=== PATIENT | female | born 1980 | race Caucasian/White ===

== ENCOUNTER 2025-04-04 14:59 | Emergency (ER) | payer OTHER, SELFPAY ==
[2025-04-04 15:06] VITALS: BP 103/57; PULSE 61; RESP 60; TEMP 36.4; O2SAT 100; BMI 27.4
--- NOTE | 2025-04-04 15:12 | DI.RAD.S_ITS ---
PROCEDURE: XR FOOT LT MIN 3V INDICATIONS: foot pain TECHNIQUE: 3 views of the foot were acquired. COMPARISON: None. FINDINGS: Bones: No fractures or dislocations. No suspicious bony lesions. Soft tissues: No tibiotalar joint effusion. Achilles tendon appears normal. IMPRESSION: No acute left foot fracture or dislocation. Dictated by: Adolfo Zamora M.D. on 04/04/2025 at 15:02 Approved by: Adolfo Zamora M.D. on 04/04/2025 at 15:05
--- NOTE | 2025-04-04 18:29 | ED.LOWEXIN ---
HPI - Extremity Injury (Lower) <Supriya Xavier PA-C - Last Filed: 04/04/25 19:03> General Chief Complaint: Extremity Injury, Lower Stated Complaint: L Leg Pain Time Seen by Provider: 04/04/25 18:28 Source: patient Mode of arrival: Wheelchair History of Present Illness HPI Narrative: 45-year-old female here today for left foot pain that started earlier while she was at the grocery store. States prior to that she had no foot problems or pain at all and has no prior problems with the foot. States that she was walking to the grocery store she gradually started having pain through her whole midfoot and up her Achilles which got worse until she could not bear any weight on the foot. States her had to carry her upstairs to her house because she can not bear any weight on the foot. States this pain persisted for several hours but started to improve while she was in the waiting room. Currently her foot aches but she is not having the same pain as before and she is now able to bear weight on her foot. She denies any numbness or tingling. She denies any calf pain. She denies any headaches or dizziness. She denies pain in her back or hip or knee. She has not taken any medication for this. She does have known neuropathy in her feet for which she takes gabapentin. 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 States her neuropathy pain is not at all like the pain she experienced today. Related Data Allergies Allergy/AdvReac Type Severity Reaction Status Date / Time No Known Allergies Allergy Verified 04/04/25 15:07 Review of Systems <Supriya Xavier PA-C - Last Filed: 04/04/25 19:03> Review of Systems ROS Unobtainable: All systems reviewed & are unremarkable except as noted in HPI and below Patient History <Supriya Xavier PA-C - Last Filed: 04/04/25 19:03> Social History Smoking Status: Never smoker Smoking Status: Never smoker Exam <Supriya Xavier PA-C - Last Filed: 04/04/25 19:03> Narrative Exam Narrative: GENERAL: Well-developed, well-nourished, appears stated age. In no acute distress HEAD: Atraumatic. Normocephalic. EYES: Pupils equal round and reactive. Extraocular motions intact. No scleral icterus. No injection or drainage. ENT: Nose without bleeding, purulent drainage. Airway patent. NECK: Trachea midline. Non tender RESPIRATORY: Respiratory rate and effort normal EXTREMITIES: No edema or joint tenderness. Normal examination of the left foot. No swelling, no redness, no deformity. No tenderness to the entire foot. Normal range of motion. Normal neurovascular exam. No calf or Achilles tenderness. Able to bear full weight on the foot without difficulty. Normal gait. NEURO: AOx3. SKIN: No rash or erythema of visible areas Initial Vital Signs Initial Vital Signs: Vital Signs Temperature 97.6 F 04/04/25 15:06 Pulse Rate 61 04/04/25 15:06 Respiratory Rate 60 H 04/04/25 15:06 Blood Pressure 103/57 L 04/04/25 15:06 Pulse Oximetry 100 04/04/25 15:06 Oxygen Delivery Method Room Air 04/04/25 15:06 <Marcos Barbosa MD - Last Filed: 04/16/25 21:02> Initial Vital Signs Initial Vital Signs: Vital Signs Temperature 97.6 F 04/04/25 15:06 Pulse Rate 61 04/04/25 15:06 Respiratory Rate 60 H 04/04/25 15:06 Blood Pressure 103/57 L 04/04/25 15:06 Pulse Oximetry 100 04/04/25 15:06 Oxygen Delivery Method Room Air 04/04/25 15:06 Course <Supriya Xavier PA-C - Last Filed: 04/04/25 19:03> Orders Ordered: ED Orders 04/04/25 15:12 XR foot LT min 3V Stat Vital Signs Vital signs: Vital Signs - 8 hr 04/04/25 15:06 Temperature 97.6 F Pulse Rate 61 Respiratory Rate 60 H Blood Pressure 103/57 L Pulse Oximetry 100 Oxygen Delivery Method Room Air <Marcos Barbosa MD - Last Filed: 04/16/25 21:02> Orders Ordered: ED Orders 04/04/25 15:12 XR foot LT min 3V Stat Vital Signs Vital signs: Vital Signs - 8 hr 04/04/25 15:06 Temperature 97.6 F Pulse Rate 61 Respiratory Rate 60 H Blood Pressure 103/57 L Pulse Oximetry 100 Oxygen Delivery Method Room Air MDM - Extremity Injury (Lower) <Supriya Xavier PA-C - Last Filed: 04/04/25 19:03> Imaging Data Extremity x-ray #1: Radiologist's Impression: [address] [address] XRay Report Signed Patient: Vera Sosa MR#: [id number] : 1980 Acct:[id number] Age/Sex: 45 / F Date of Service: 04/04/25 Loc: ED Accession Number: [id number] Procedure: XR foot LT min 3V Ordering Provider: Marcos Barbosa MD PROCEDURE: XR FOOT LT MIN 3V INDICATIONS: foot pain TECHNIQUE: 3 views of the foot were acquired. COMPARISON: None. FINDINGS: Bones: No fractures or dislocations. No suspicious bony lesions. Soft tissues: No tibiotalar joint effusion. Achilles tendon appears normal. IMPRESSION: No acute left foot fracture or dislocation. Dictated by: Adolfo Zamora M.D. on 04/04/2025 at 15:02 Approved by: Adolfo Zamora M.D. on 04/04/2025 at 15:05 [facility] Narrative Medical decision making narrative: Patient had an episode of foot pain earlier that lasted several hours but while she was in the waiting room it started to improve. Currently she has some aching/mild soreness of the foot but she is now able to bear weight and walk on it which she was unable to do before. X-ray normal. We discussed possible causes of her pain. She does have known neuropathy in her feet but states this pain is much different. I recommend that she do some gentle stretching and [id number] exercises with her feet and she can use a tennis ball to rule out her plantar fascia. Wear supportive well fitting shoes. If she has repeated episodes of this foot pain she should see her PCP to possibly obtain an MRI. No further evaluation needed at this time as her symptoms are mostly resolved. Discharge Plan Departure Patient Disposition: Home Clinical Impression: Acute pain of left foot Instructions: DI for Metatarsalgia, DI for Foot Pain Activity Restrictions/Additional Instructions: Thank you for choosing us to care for you today. You were seen today for your left foot pain. Your foot x-ray was normal. Your pain was resolved by the time you were examined which is great news. It is possible that you experienced something called metatarsalgia, or there may be another explanation for your foot pain. If you are experiencing repeated episodes of this pain you should follow up with your primary care physician for further evaluation. If this happens again please rest and elevate your foot until it resolves. Stand Alone Forms: Patient Portal/API ED Sign-out <Marcos Barbosa MD - Last Filed: 04/16/25 21:02> Cosign ED Attending Kathy Attestation: I was immediately available in the department for consultation. ?This documentation has been reviewed and I agree with assessment and plan. Supervised by Marcos Barbosa MD
--- NOTE | 2025-04-04 19:04 | PC.NURSE ---
patient states the left foot is feeling better while waiting.
== END 2025-04-04 19:06 | disposition home or self-care (01) ==
PROVIDERS: Emergency Provider Physician Assistant
DX: M79.672 Pain in left foot (principal); G62.9 Polyneuropathy, unspecified
CPT/HCPCS: 73630; 99281; 99283